=== PATIENT | male | born 1980 | race Asian ===

== ENCOUNTER 2016-04-07 17:27 | Emergency (ER) | payer OTHER ==
[2016-04-07 19:34] VITALS: BP 131/84
--- NOTE | 2016-04-07 20:04 | UC ---
UC General HPI - HPI Summary HPI Summary: 35 year old male complaining of runny nose, post nasal drip, irritated throat, nasal congestion, softer more frequent stools. Denies n/v, sinus congestion, or exposure to recent illness. - History of Current Complaint Chief Complaint: UCGeneralIllness Stated Complaint: COUGH,ST,FEVER Time Seen by Provider: 04/07/16 19:43 Hx Obtained From: Patient Onset/Duration: Gradual Onset Timing: Constant Onset Severity: Mild Current Severity: Mild - Allergy/Home Medications Allergies/Adverse Reactions: Allergies Allergy/AdvReac Type Severity Reaction Status Date / Time No Known Allergies Allergy Verified 04/07/16 19:29 Home Medications: Home Medications NK [No Home Medications Reported] 04/07/16 [History Confirmed 04/07/16] PMH/Surg Hx/FS Hx/Imm Hx Previously Healthy: Yes Endocrine History Of: Denies: Diabetes, Thyroid Disease, Hyperthyroidism, Hypothyroidism, Dyslipidemia Cardiovascular History Of: Denies: Cardiac Disorders, Hypertension, Pacemaker/ICD, Myocardial Infarction , Congestive Heart Failure, Atrial Fibrillation, Deep Vein Thrombosis, Bleeding Disorders Respiratory History Of: Reports: Asthma Psychological History Of: Denies: Anxiety, Depression - Surgical History Surgical History: None - Family History Known Family History: Positive: Hypertension - Social History Occupation: Employed Full-time Alcohol Use: None Substance Use Type: None Smoking Status (MU): Never Smoked Tobacco Have You Smoked in the Last Year: No Review of Systems Constitutional: Fever Skin: Negative Eyes: Negative ENT: Nasal Discharge Respiratory: Negative Cardiovascular: Negative Gastrointestinal: Diarrhea Genitourinary: Negative Motor: Negative Neurovascular: Negative Musculoskeletal: Negative Neurological: Negative Psychological: Negative All Other Systems Reviewed And Are Negative: Yes Physical Exam Triage Information Reviewed: Yes Appearance: Well-Appearing, No Pain Distress Vital Signs: Initial Vital Signs Temp 100.0 F 04/07/16 19:31 Pulse 88 04/07/16 19:31 Resp 18 04/07/16 19:31 BP 131/84 04/07/16 19:31 Pulse Ox 99 04/07/16 19:31 Vital Signs Reviewed: Yes Eye Exam: Normal Eyes: Positive: Conjunctiva Clear ENT: Positive: Hearing grossly normal, Pharyngeal erythema, Nasal congestion, Nasal drainage, TMs normal Dental Exam: Normal Neck: Positive: Supple, Nontender, No Lymphadenopathy Respiratory: Positive: Chest non-tender, Lungs clear, Normal breath sounds Cardiovascular: Positive: RRR, No Murmur, Pulses Normal Abdomen Description: Positive: Nontender, No Organomegaly, Soft Bowel Sounds: Positive: Hyperactive Musculoskeletal: Positive: Strength Intact, ROM Intact Neurological: Positive: Alert, Muscle Tone Normal Skin Exam: Normal Course/Dx - Differential Dx - Multi-Symptom Provider Diagnoses: viral syndrome Discharge - Discharge Plan Condition: Stable Disposition: HOME Patient Education Materials: Viral Syndrome (ED) Referrals: [facility] [Outside] Additional Instructions: As discussed, follow up if you develop constant right lower quadrant pain, fever of 101F with chills, vomiting and passing blood. Drink warm beverages such as tea while symptoms persist, add tamir honey and lemon as desired.
== END 2016-04-07 20:25 | disposition home or self-care (01) ==
LOC: UCEAST 17:27
DX: B34.9 Viral infection, unspecified (principal)
CPT/HCPCS: 99201; G0463